=== PATIENT | male | born 1950 | race Caucasian/White ===

== ENCOUNTER 2016-11-20 12:46 | Emergency (ER) | payer OTHER ==
[~2016-11-20] VITALS: Ht 172.7 cm; Wt 124.0 kg
[~2016-11-20 12:46] MED LIST: ALLOPURINOL300 MG PO; Aspirin PO; COLCRYS0.6 MG PO; FLOMAX0.4 MG PO; Glucophage PO; Januvia PO; LOTREL 5/201 CAPSULE PO; Lotrel 5/20 PO; PRILOSEC40 MG PO; Pravachol PO; REFLUX MED; Vicodin,Norco 5/325 PO; XALATAN2.5 ML BOTH EYES; Xalatan 0.005% Ophth BOTH EYES; celeBREX PO
[2016-11-20 13:02] VITALS: BP 155/83
[2016-11-20 14:01] LABS: HEMATOCRIT 45.5 % (38.0-50.0); MCH 30.1 PG (29.0-34.0); MCHC 32.3 G/DL (30.0-36.0); MCV 93.2 FL (86-99); MEAN PLAT.VOLUME 11.6 uM^3 (9.0-12.4); PLATELET COUNT 155 K/uL (156-360); RBC DIS.WIDTH-CV 14.9 % (11.8-14.6); RBC DIS.WIDTH-SD 48.8 % (39-53); RED BLOOD COUNT 4.88 M/uL (4.00-5.50); WHITE BLOOD COUNT 6.4 K/uL (4.1-10.2)
[2016-11-20 14:09] LABS: CHLORIDE 109 mEq/L (99-109); POTASSIUM 4.8 mEq/L (3.7-5.4); SODIUM 144 mEq/L (136-147)
[2016-11-20 14:11] LABS: GLUCOSE 95 mg/dL (70-99)
[2016-11-20 14:13] LABS: ANION GAP 7 MEQ/L (2-14)
[2016-11-20 14:15] LABS: GFR ESTIMATE (CALCULATED) > 59 mL/min/
[2016-11-20 14:16] LABS: UREA NITROGEN (BUN) 19 mg/dL (9-23)
[2016-11-20 14:23] LABS: TROP-I INTERPRETATION NEGATIVE; TROPONIN-I < 0.01 ng/mL (0.0-0.30)
[2016-11-20 16:29] LABS: TROP-I INTERPRETATION NEGATIVE; TROPONIN-I < 0.01 ng/mL (0.0-0.30)
== END 2016-11-20 17:44 | disposition home or self-care (01) ==
LOC: EME 12:46
PROVIDERS: Nurse Practitioner Family
DX: R07.89 Other chest pain (principal); R20.2 Paresthesia of skin; Z87.891 Personal history of nicotine dependence; Z85.820 Personal history of malignant melanoma of skin; E11.9 Type 2 diabetes mellitus without complications; I10 Essential (primary) hypertension
CPT/HCPCS: 71020; 80048; 84484; 85027; 93005; 99281; 99284